=== PATIENT | male | born 1985 | race Hispanic/Latino ===

== ENCOUNTER 2025-01-03 17:17 | Inpatient (IN) | payer OTHER ==
[~2025-01-03] VITALS: Ht 188 cm; Wt 115.2 kg
[2025-01-03 17:53] LABS: BASOPHILS % 0.5 % (0.0-1.0); EOSINOPHILS % 2.3 % (0.0-6.0); LYMPHOCYTES % 22.8 % (18.0-39.1); MONOCYTES % 7.0 % (4.4-11.3); NEUTROPHILS % 66.9 % (38.7-80.0); RED CELL DISTRIBUTION WIDTH 12.2 % (11.7-14.4)
[2025-01-03 18:11] LABS: EST GLOMERULAR FILTRATION RATE 113.0 ML/MIN (>=60)
[2025-01-03 18:53] VITALS: TEMP 97.7
[2025-01-03 19:35] LABS: INR 0.94
[2025-01-03 20:14] LABS: AMPHETAMINES SCREEN,URINE NEGATIVE (NEGATIVE); CANNABINOIDS SCREEN,URINE NEGATIVE (NEGATIVE); COCAINE SCREEN,URINE NEGATIVE (NEGATIVE); METHADONE SCREEN, URINE NEGATIVE (NEGATIVE); OPIATES SCREEN,URINE NEGATIVE (NEGATIVE)
[2025-01-03] MEDS ORDERED: ONDANSETRON HCL INJ 2MG/ML 2ML 2 MG/ML VIAL IV PRN (20:15)
[2025-01-03] MEDS ORDERED: Morphine 4mg INJECTION 4 MG/ML INJ IV PRN (20:15)
[2025-01-03] MEDS: CLOPIDOGREL BISULFATE 75 MG TAB PO ONE (20:32)
[2025-01-03] MEDS: ASPIRIN 81 MG CHEW TAB PO ONE (20:32)
[2025-01-03] MEDS: ENOXAPARIN SODIUM INJ 100 MG/ML SYR SC STA (20:33)
[2025-01-03] MEDS: NITROGLYCERIN 2% OINT 1 GM PKT TOP ONE (20:54)
[2025-01-03] MEDS: ACETAMINOPHEN 325 MG TAB PO PRN (20:55)
[2025-01-03 21:03] VITALS: PULSE 80; RESP 17
[2025-01-04] VITALS (15 sets, daily range): BP systolic 83–120; BP diastolic 61–81; PULSE 58–92; RESP 14–20; TEMP 97.7–98.2; O2SAT 95–97
[2025-01-04] MEDS: NITROGLYCERIN 2% OINT 1 GM PKT TOP SCH
[2025-01-04 07:43] LABS: CHOL/HDL RATIO 4.1 (3.9-4.7); LDL CHOLESTEROL 87.0 MG/DL (60-130)
[2025-01-04] MEDS: ASPIRIN 325 MG TAB EC PO SCH (10:45)
[2025-01-04] MEDS: CLOPIDOGREL BISULFATE 75 MG TAB PO SCH (10:46)
[2025-01-04] MEDS ORDERED: IOPAMIDOL 370 MG/ML 100 ML INFUS..BTL INJ ONE ×2 (11:12→14:57)
[2025-01-04] MEDS ORDERED: HEPARIN SOD/SOD CHLORIDE 2,000 ML ONE (11:12)
[2025-01-04] MEDS ORDERED: LIDOCAINE HCL 2% LOCAL 20 ML VIAL ONE (11:12)
[2025-01-04] MEDS ORDERED: VERAPAMIL HCL 2.5 MG/ML 2 ML VIAL ONE (11:12)
[2025-01-04] MEDS ORDERED: HEPARIN SOD (PORCINE) 1000 UNIT/ML 30ML ONE (11:12)
[2025-01-04] MEDS ORDERED: SODIUM CHLORIDE 0.9% 1000ML 1,000 ML ONE (11:13)
[2025-01-04] MEDS ORDERED: NITROGLYCERIN/D5W 200 MCG/ML 250 ML ONE (11:13)
[2025-01-04] MEDS ORDERED: MIDAZOLAM HCL 2 MG/2 ML VIAL ONE (11:13)
[2025-01-04] MEDS ORDERED: FENTANYL CITRATE/PF 100MCG/2 ML INJ ONE (11:14)
[2025-01-04] MEDS: SODIUM CHLORIDE 0.9% 1000ML 1,000 ML IV SCH (15:55)
== END 2025-01-04 18:40 | disposition home or self-care (01) | DRG 282 ==
LOC: ER 17:34 → ERHOLD 20:05 → MED/SURG2 01-04 00:04 → ICU 01-04 03:56
PROVIDERS: ADMIT Family Medicine; ATTEND Family Medicine
PROC: 4A023N7 Measurement of Cardiac Sampling and Pressure, Left Heart, Percutaneous Approach (ICD-10-PCS; principal; 2025-01-04)
PROC: B2111ZZ Fluoroscopy of Multiple Coronary Arteries using Low Osmolar Contrast (ICD-10-PCS; 2025-01-04)
DX: I21.A1 Myocardial infarction type 2 (principal); R03.0 Elevated blood-pressure reading, without diagnosis of hypertension; E78.00 Pure hypercholesterolemia, unspecified; I77.89 Other specified disorders of arteries and arterioles; Z72.0 Tobacco use
CPT/HCPCS: 36415; 71045; 71260; 76937; 80053; 80061; 80307; 82550; 84484; 85025; 85379; 85610; 85730; 93005; 93306; 93458; 94799; 99152; 99153; 99252; 99284; C1769; C1887; C1894; J1644; J1650; J2003; J2250; J7030; Q9967